=== PATIENT | male | born 1950 | race Caucasian/White ===

== ENCOUNTER 2023-01-19 16:42 | Emergency (ER) | payer MEDICARE, BC, SELFPAY ==
[2023-01-19 16:51] VITALS: BP 195/109; PULSE 80; RESP 18; TEMP 37; O2SAT 97; BMI 27.3
--- NOTE | 2023-01-19 17:08 | ED_ITS ---
HPI - General Adult General Chief complaint: Back Injury/Pain Stated complaint: Back pain, leg numb Time Seen by Provider: 01/19/23 16:44 History of Present Illness HPI narrative: reports that he has been working painting his house this week . feels as though he had injured his back moving ladders around. pain became bad yesterday. pain goes down his right leg?started doing this this am. went to his chiropractor today and had an adjustment . did feel better initially. is standing during triage. took Tylenol twice today. on blood thinners and can't take ibuprofen. has had mild back injuries in the past. no problems with defecation or micturition. 72-year-old man presenting to the emergency department with concern of back pain. Has been doing some painting. Normally is quite active working hard. A few days ago was moving a ladder in his usual manner and rotated his trunk. Pain has been escalating symptoms. Almost feels like it might be going down his thighs or maybe is more just spasming. He did go to the chiropractor and had a an adjustment feeling better initially but has since been worsening. Did anticoagulants is not take NSAIDs like ibuprofen. He thinks he has hurt this area before but not this bad; it has never felt so painful. No loss of bowel or bladder control. No loss of sensation distally. Seems to be going across his low back and then into his hips. Related Data Allergies Allergy/AdvReac Type Severity Reaction Status Date / Time erythromycin base Allergy Verified 01/19/23 16:51 shellfish derived Allergy Verified 01/19/23 16:51 Review of Systems Status of ROS: Reports: 6 or more systems reviewed and unremarkable except as noted in History and below [facility] Social History Smoking Status: Never smoker Do you use any of these nicotine containing products: None Second hand tobacco smoke exposure: No How often do you have a drink containing alcohol: never How often do you have six or more drinks on one occasion: Never AUDIT-C Alcohol total score: 0 Non-prescribed substance use: denies use service: No Exam Narrative: Exam Narrative: Pleasant man. Accompanied by spouse. Clearly uncomfortable. Mildly restless. Transitions hesitantly. Blood pressure noted elevated. Skin is warm and dry. No outward signs of trauma. He has good range of motion at the neck. Palpation of midline spine is nontender. He has right greater than SI joint area pain. No sacral pain specifically. Sore to palpation in the upper outer hip musculature. Has full strength to resisted flexion extension throughout the lower extremities. Jim's is negative. No sensory losses apparent. Abdomen little tense laterally and low. Const: Vital Signs, click to edit/add: Vital Signs - 24 hr 01/19/23 16:51 Temperature 98.6 F Pulse Rate [Pulse Oximeter] 80 Respiratory Rate 18 Blood Pressure [Le ft Forearm] 195/109 H Pulse Oximetry 97 Oxygen Delivery Me thod Room Air Documenting provider has reviewed patient's vital signs: yes Course Vital Signs Vital signs: Initial Vital Signs Temperature 98.6 F 01/19/23 16:51 Temperature Source Temporal Artery Scan 01/19/23 16:51 Pulse Rate 80 01/19/23 16:51 Pulse Rhythm Regular 01/19/23 16:51 Respiratory Rate 18 01/19/23 16:51 Blood Pressure 195/109 H 01/19/23 16:51 Blood Pressure Mean 137 H 01/19/23 16:51 Blood Pressure Position Standing 01/19/23 16:51 Pulse Oximetry 97 01/19/23 16:51 Oxygen Delivery Method Room Air 01/19/23 16:51 Vital Signs Temperature 98.6 F 01/19/23 16:51 Pulse Rate 80 01/19/23 16:51 Respiratory Rate 18 01/19/23 16:51 Blood Pressure 195/109 H 01/19/23 16:51 Pulse Oximetry 97 01/19/23 16:51 Oxygen Delivery Method Room Air 01/19/23 16:51 Temperature 98.6 F 01/19/23 16:51 Pulse Rate 80 01/19/23 16:51 Respiratory Rate 18 01/19/23 16:51 Blood Pressure 195/109 H 01/19/23 16:51 Pulse Oximetry 97 01/19/23 16:51 Oxygen Delivery Method Room Air 01/19/23 16:51 Medical Decision Making MDM Narrative Medical decision making narrative: Certainly could have discogenic disease. Possibly facet issue. Likely has osteoarthritic spine given history of physical work. There was not trauma in the form that I think imaging is necessary but I did discuss potential information a could be gained. I think most likely is he does have sacroiliac joint strain/sprain and resulting muscle recruitment and spasm. They prefer to defer imaging. Also discussing pain medication that do not think that needs an opiate. Not be giving Toradol given medications and the concerns though likely singular dosing not problematic. Did opt to place a lidocaine patch. They are wondering whether muscle relaxers might be helpful. Discussed primary effective muscle relaxers as sedatives. See patient discharge plan Discharge Plan Discharge Clinical Impression: Low back strain, Sacroiliac joint pain Patient Disposition: Home w/ Parent or Adult Condition: Improved Additional Instructions: You received a lidocaine patch here in the emergency department. This is actually available [id number] as well. If you find that this is helpful this might be something you should consider trying. It is relatively benign treatment if you do not have an adhesive allergy. See handout on stretches/strengthening exercises that you could do regularly/daily for treatment of low back pain and sacroiliac joint pain. If you are not improved in a week, consider follow-up in primary care with possible referral to physical therapy. Can take up to 1000 mg of acetaminophen per dose. This can be combined with the ?muscle relaxers that you are mentioning. Cyclobenzaprine from [facility]. I think after initial injury for a few days ice packs to the area that hurt can be helpful. Then can transition to warm packs. I apologize for the delay this evening. Follow Up/Referrals: Cody Garcia MD [Primary Care Provider] - Stand Alone Forms: [employer] Info Instructions
[2023-01-19] MEDS: LIDOCAINE 5% PATCH 1 PATCH TRANSDERMA (17:50)
== END 2023-01-19 18:35 | disposition home or self-care (01) ==
PROVIDERS: Emergency Provider Family Medicine; PCP Surgery
DX: S39.012A Strain of muscle, fascia and tendon of lower back, initial encounter (principal); X50.0XXA Overexertion from strenuous movement or load, initial encounter; M53.3 Sacrococcygeal disorders, not elsewhere classified
CPT/HCPCS: 99283; 99284; A9270

== ENCOUNTER 2023-07-02 07:00 | Outpatient (CLI) | payer MEDICARE, BC, SELFPAY ==
--- NOTE | 2023-07-02 09:08 | W.ANESCHARGE ---
Anesthesia Charges Start Date/Time Anesthesia Start Date: 07/02/23 Anesthesia Start Time: 08:15 Stop Date/Time Anesthesia Stop Date: 07/02/23 Anesthesia Stop Time: 09:03
--- NOTE | 2023-07-02 11:09 | W.ANESCHARGE ---
Anesthesia Charges Start Date/Time Anesthesia Start Date: 07/02/23 Anesthesia Start Time: 08:15 Stop Date/Time Anesthesia Stop Date: 07/02/23 Anesthesia Stop Time: 09:03 Summary Extremes of Age - Over 70 or under 1: MDA
== END 2023-07-02 07:01 | disposition home or self-care (01) ==
LOC: OP CLINIC 07:02
PROVIDERS: PCP Family Medicine; Visit Provider Internal Medicine Gastroenterology
DX: Z12.11 Encounter for screening for malignant neoplasm of colon (principal); Z86.010 Personal history of colon polyps; R13.10 Dysphagia, unspecified; K21.00 Gastro-esophageal reflux disease with esophagitis, without bleeding; K22.2 Esophageal obstruction; K31.7 Polyp of stomach and duodenum
CPT/HCPCS: 00811; 00813; 43239; 43248; 45378; 88305; 99100; J2704

== ENCOUNTER 2024-12-10 07:04 | Outpatient (CLI) | payer MEDICARE, BC, SELFPAY ==
--- NOTE | 2024-12-10 07:15 | MR_ITS ---
[address] [address] Phone:?[phone] Fax:?[phone] Referring Physician Information: Willis Saunders M.D. [id number] [facility] [address] Phone:?[phone] Fax:?[phone] Patient:Jason Pedroza D.O.B:?1950 Sex:?Male Phone:?[phone] [facility] MRN:?[id number] Exam Date:?12/10/2024 EXAM: MRI of the RIGHT SHOULDER, without contrast CLINICAL INFORMATION: Male, 74 years old, with right shoulder pain. INDICATION: Evaluate rotator cuff tear. PRIOR SURGERY: None reported. PLAIN FILMS: None available. COMPARISONS: No prior MRIs available. TECHNICAL INFORMATION: Using a 1.5T MR scanner and a localizing surface coil: coronal obliques: PD, T2, STIR sagittal obliques: PD, T2 axials: PD, T2 SEDATION: None CONTRAST: None FINDINGS: Bones: Proximal humerus: No fracture or marrow edema/pathology. No humeral Hill-Sachs or reverse Hill-Sachs lesion/impaction or contusion. Glenoid: No fracture or marrow edema/pathology. No osseous Bankart lesion. Rotator cuff and muscles/tendons: Supraspinatus: Moderate supraspinatus tendinopathy with a 1.4 x 1.4 cm low-grade partial-thickness bursal surface tearing of the central distal tendon fibers (sagittal T2 series 9 image 7 and coronal STIR series 5 image 9. No full- thickness tear or muscle atrophy. Infraspinatus: Mild infraspinatus tendinopathy without tendon tear or muscle atrophy. Teres minor: No tendinopathy, tear or atrophy. Subscapularis: Moderate tendinopathy of the superior distal subscapularis without tendon tear or muscle atrophy. Deltoid: No strain or atrophy. Coracoacromial arch: Acromion morphology: Status post anterior acromioplasty for subacromial decompression. No os acromiale. Acromiohumeral space: The acromiohumeral space is decompressed. Coracohumeral space: The coracohumeral space is within normal limits. Acromioclavicular joint: Joint: Status post AC joint resection for subacromial depression, with good result. Ligaments: Coracoclavicular ligaments are intact. Bursae: Subacromial-subdeltoid: Mild subacromial subdeltoid bursitis. Subcoracoid: No convincing subcoracoid bursal thickening/bursitis. Biceps tendon: The long head of the biceps tendon is present within the bicipital groove. Marked tendinopathy and ill-defined [id number] tearing of the intra-articular biceps long head tendon (coronal STIR series 5 images 7-15). Glenohumeral joint: Effusion/cyst: Small glenohumeral joint effusion. Articular cartilage: Humeral head: No osteochondral abnormalities. Glenoid: No osteochondral abnormalities. Loose bodies: No discrete intra-articular body within the joint. Labrum:?Intrasubstance degeneration and linear tearing throughout the superior labrum measuring 1.9 cm (coronal STIR series 5 images 13-18). The labrum is otherwise intact. No paralabral cyst. Inferior glenohumeral ligament/axillary pouch:?Moderate thickening of inferior capsuloligamentous structures (coronal PD series 6 images 14-18). Additionally, there is extensive soft tissue thickening throughout the rotator interval and subcoracoid recess (sagittal PD series 8 images 11-16). IMPRESSION: 1. Moderate supraspinatus tendinopathy with a 1.4 x 1.4 cm area of low-grade partial-thickness bursal surface tearing of the central distal tendon fibers. There is also moderate subscapularis and mild infraspinatus tendinopathy without tear. 2. Status post anterior acromioplasty and AC joint resection for subacromial decompression, with good result. However, there is mild subacromial subdeltoid bursitis. 3. Marked tendinopathy and ill-defined [id number] tearing of the intra-articular biceps long head tendon. 4. Findings in keeping with adhesive capsulitis. 5. Intrasubstance degeneration and linear tearing of the superior labrum measuring 1.9 cm. 6. No full-thickness chondral defect or evidence of glenohumeral joint osteoarthritis. BC Electronically signed on 12/10/2024 12:54:00 PM by Cuate Handy M.D.
== END 2024-12-10 07:05 | disposition home or self-care (01) ==
LOC: MRI 07:05
PROVIDERS: PCP Family Medicine; Visit Provider Orthopaedic Surgery Sports Medicine
DX: M25.511 Pain in right shoulder (principal); M75.101 Unspecified rotator cuff tear or rupture of right shoulder, not specified as traumatic; M75.01 Adhesive capsulitis of right shoulder; M75.51 Bursitis of right shoulder
CPT/HCPCS: 73221